=== PATIENT | male | born 1995 | race Caucasian/White ===

== ENCOUNTER 2021-12-28 19:12 | Emergency (ER) | payer BC, OTHER ==
[2021-12-28] MEDS ORDERED: Lidocaine 1% 30 ML SDV INJECT ONE (20:08)
[2021-12-28] MEDS ORDERED: Diphtheria,Pertussis(Acell),Tetanus Vaccine 0.5 ML Syringe IM ONE (20:14)
[2021-12-28] MEDS ORDERED: Cephalexin 500 MG Cap PO ONE (22:06)
[2021-12-28] MEDS ORDERED: Bacitracin Oint 1 GM U/D Packet ONE (22:09)
[2021-12-28] MEDS ORDERED: Bacitracin Oint 1 GM U/D Packet TOP ONE (22:39)
== END 2021-12-28 22:57 | disposition home or self-care (01) ==
LOC: DL.ED 19:12
DX: S66.901A Unspecified injury of unspecified muscle, fascia and tendon at wrist and hand level, right hand, initial encounter (principal); S61.210A Laceration without foreign body of right index finger without damage to nail, initial encounter; Z23 Encounter for immunization; W20.8XXA Other cause of strike by thrown, projected or falling object, initial encounter
CPT/HCPCS: 12002; 73120; 90471; 90715; 99283; A9270